=== PATIENT | female | born 1990 ===

== ENCOUNTER 2017-10-05 22:59 | Emergency (ER) | payer MEDICAID ==
[2017-10-05 23:28] VITALS: RESP 18; TEMP 98.2
[2017-10-06 01:06] LABS: BASO % 0.2 % (0.0-2.0); EOS % 0.4 % (0.0-4.0); HEMOGLOBIN 13.9 g/dL (12.0-16.0); LYMPH # 2.1 K/uL (1.0-4.3); LYMPH % 19.1 % (20.0-40.0); MEAN CELL VOLUME 83.7 fl (81.0-99.0); MEAN CORPUSCULAR HEMOGLOBIN 29.3 pg (27.0-31.0); MEAN PLATELET VOLUME 8.3 fl (7.2-11.7); MONO # 0.6 K/uL (0.0-0.8); MONO % 5.6 % (0.0-10.0); NEUT # 8.2 K/uL (1.8-7.0); NEUT % 74.7 % (50.0-75.0); RBC 4.76 Mil/uL (3.80-5.20); RED CELL DISTRIBUTION WIDTH 12.7 % (11.5-14.5)
[2017-10-06 01:10] LABS: SQUAMOUS EPITHIAL 4 /hpf (0-5); URINE BILIRUBIN NEGATIVE (NEGATIVE); URINE BLOOD NEGATIVE (NEGATIVE); URINE CLARITY CLOUDY (Clear); URINE COLOR YELLOW (YELLOW); URINE GLUCOSE (UA) NEG (Normal); URINE LEUKOCYTE ESTERASE NEG Leu/uL (Negative); URINE PROTEIN NEGATIVE (NEGATIVE)
[2017-10-06 01:15] LABS: ALB/GLOB RATIO 1.2 (1.0-2.1); ALBUMIN 4.5 g/dL (3.5-5.0); ALT/SGPT 15 U/L (9-52); AST/SGOT 21 U/L (14-36); BLOOD UREA NITROGEN 11 mg/dl (7-17); CALCIUM 9.9 mg/dL (8.4-10.2); GFR AFRICAN-AMERICAN > 60; GFR NON-AFRICAN AMERICAN > 60
--- NOTE | 2017-10-06 03:12 | ED PDOC ---
HPI: Female Pain Time Seen by Provider: 10/05/17 23:28 Chief Complaint (Nursing): Female Genitourinary Chief Complaint (Provider): Pelvic cramping Additional Complaint(s): 27 yo presents at 7 weeks gestation for evaluation of pelvic cramping. Pt denies vaginal bleeding. Pt states the cramping has been going on for 1-2 weeks. Pt reports pain central adn equal bilaterally. Pt did not take anything for the pain. Pt also reports some nausea. Pt has appointment in 2 weeks with OB. Past Medical History Reviewed: Historical Data, Nursing Documentation, Vital Signs Vital Signs: Last Vital Signs Temp 98.2 F 10/05/17 23:24 Pulse 82 10/05/17 23:24 Resp 18 10/05/17 23:24 BP 120/69 10/05/17 23:24 Pulse Ox 99 10/05/17 23:24 - Medical History PMH: No Chronic Diseases - Surgical History Surgical History: No Surg Hx - Family History Family History: States: No Known Family Hx - Allergies Allergies/Adverse Reactions: Allergies Allergy/AdvReac Type Severity Reaction Status Date / Time No Known Allergies Allergy Verified 10/05/17 23:24 Review of Systems ROS Statement: Except As Marked, All Systems Reviewed And Found Negative Constitutional: Negative for: Fever, Chills Genitourinary Female: Positive for: Pelvic Pain. Negative for: Dysuria, Frequency, Vaginal Discharge, Vaginal Bleeding Physical Exam - Reviewed Nursing Documentation Reviewed: Yes Vital Signs Reviewed: Yes - Physical Exam Appears: Positive for: Well, Non-toxic, No Acute Distress Head Exam: Positive for: ATRAUMATIC, NORMAL INSPECTION, NORMOCEPHALIC Skin: Positive for: Normal Color, Warm, DRY Eye Exam: Positive for: Normal appearance ENT: Positive for: Normal ENT Inspection Neck: Positive for: Normal Cardiovascular/Chest: Positive for: Regular Rate, Rhythm Respiratory: Positive for: Normal Breath Sounds. Negative for: Accessory Muscle Use, Respiratory Distress Gastrointestinal/Abdominal: Positive for: Normal Exam, Soft. Negative for: Tenderness, Guarding Back: Positive for: Normal Inspection Extremity: Positive for: Normal ROM Neurologic/Psych: Positive for: Alert, Oriented - Laboratory Results Result Diagrams: 10/06/17 00:50 10/06/17 00:50 - ECG O2 Sat by Pulse Oximetry: 99 Medical Decision Making Medical Decision Making: Labs normal. US normal - IUP with [facility]HT Disposition - Clinical Impression Clinical Impression: Abdominal pain affecting - Patient ED Disposition Is Patient to be Admitted: No Counseled Patient/Family Regarding: Diagnosis, Need For Followup - Disposition [facility] Disposition: Routine/Home Disposition Time: 02:56 Condition: STABLE Additional Instructions: Follow-up with OB. vitamins daily Instructions: Medications and
[2017-10-06 03:16] VITALS: BP 102/62; PULSE 78; O2SAT 100
--- NOTE | 2017-10-06 12:39 | US ---
Date of service: 10/06/2017 PROCEDURE: First trimester ultrasound HISTORY: pelvic pain in COMPARISON: None available. TECHNIQUE: Standard protocol for this study/examination. FINDINGS: LMP: 08/18/2017 Prior examinations from the current : None TECHNIQUE: Real-time 2D imaging, duplex and color Doppler. FINDINGS: Cardiac activity: Present Rate: 110 BPM Measurements: [place] rump length: 0.28 cm Gestational age based on CRL 5 weeks 6 days Gestational age 6 weeks based on gestational sac measurement 1.66 cm Gestational age derived from LMP: 7 weeks VÍCTOR based on LMP: 05/25/2018 VÍCTOR based on biometry: 06/01/2018 Gestational concordance documented Yolk sac identified Uterus: Unremarkable. Cervix: No Cervical abnormalities: Negative examination for cervical dilatation or effacement. Closed cervix measuring 3.15 cm Subchorionic hemorrhage: None UTERUS: 4.5 x 5.4 x 8.0 cm. ADNEXA: Right: 1.5 x 1.5 x 2.5 cm. Normal Doppler arterial waveform documented. Left: 2.4 x 2.8 x 2.9 cm. Simple cyst 1 x 1.4 x 1.8 cm Normal Doppler arterial waveform documented Fluid in the cul-de-sac: None. IMPRESSION: Six weeks live intrauterine gestation. Gestational concordance documented. bradycardia. Concordant results (preliminary interpretation) provided by [facility]. Procedure Completed: 01:58. Preliminary ([facility]) Report: Dictated and Authenticated: 02:49. Final Interpretation: 12:37 October 06, 2017.
== END 2017-10-06 03:19 | disposition home or self-care (01) ==
LOC: H.ER 22:59
DX: O26.891 Other specified pregnancy related conditions, first trimester (principal); Z3A.01 Less than 8 weeks gestation of pregnancy